=== PATIENT | male | born 2000 | race Caucasian/White ===

== ENCOUNTER 2023-06-29 07:54 | Emergency (ER) | payer BC ==
[~2023-06-29] VITALS: Ht 180.3 cm; Wt 161.0 kg
[2023-06-29 07:58] VITALS: BP 153/97; PULSE 95; RESP 22; TEMP 98.6; O2SAT 98
[2023-06-29] MEDS ORDERED: TORADOL ONE (08:04)
[2023-06-29] MEDS: TORADOL IM ONE (08:07)
[2023-06-29 08:15] VITALS: BP 153/97; PULSE 95; RESP 22; TEMP 98.6; O2SAT 98
[2023-06-29 08:42] VITALS: BP 137/66; PULSE 86; RESP 22; TEMP 98.6; O2SAT 98
== END 2023-06-29 08:47 | disposition home or self-care (01) ==
LOC: ER 07:54
DX: S99.922A Unspecified injury of left foot, initial encounter (principal); W19.XXXA Unspecified fall, initial encounter; Y93.89 Activity, other specified; Y92.89 Other specified places as the place of occurrence of the external cause; Y99.8 Other external cause status
CPT/HCPCS: 99284; 96372; 73610; 73630; J1885